=== PATIENT | female | born 1990 | race Caucasian/White ===

== ENCOUNTER 2016-10-18 12:37 | Emergency (ER) | payer OTHER ==
[2016-10-18 14:35] VITALS: BP 132/77
== END 2016-10-18 15:05 | disposition home or self-care (01) ==
LOC: ED 12:37
DX: O26.893 Other specified pregnancy related conditions, third trimester (principal); Z3A.31 31 weeks gestation of pregnancy
CPT/HCPCS: Q0092

== ENCOUNTER 2019-12-02 20:09 | Emergency (ER) | payer OTHER ==
[~2019-12-02] VITALS: Ht 167.6 cm; Wt 95.7 kg
[2019-12-02 20:10] VITALS: Ht 167.6 cm; Wt 95.7 kg
[2019-12-02 21:15] LABS: BASOPHIL % 0.6 % (0-2); PLATELET COUNT 255 x10^3mcL (130-400)
[2019-12-02 21:23] LABS: CALCIUM 8.5 mg/dL (8.5-10.1); CARBON DIOXIDE 32.4 mmol/L (21-32); CHLORIDE SERUM 105 mmol/L (98-107); CREATININE SERUM 0.8 mg/dL (0.6-1.0); GFR1 > 60 mL/min; GLUCOSE SERUM 120 mg/dL (74-106); POTASSIUM SERUM 3.7 mmol/L (3.5-5.1); SODIUM SERUM 140 mmol/L (136-145)
[2019-12-02 21:29] LABS: ALBUMIN 3.7 g/dL (3.4-5.0); ALKALINE PHOSPHATASE 90 U/L (46-116); ALT/SGPT 26 U/L (14-59); AST/SGOT 14 U/L (15-37); BILIRUBIN TOTAL 0.15 mg/dL (0.20-1.00); TOTAL PROTEIN, SERUM 7.1 g/dL (6.4-8.2)
[2019-12-02 21:46] LABS: MAGNESIUM 1.8 mg/dL (1.8-2.4); PHOSPHOROUS 3.6 mg/dL (2.5-4.9)
[2019-12-02 21:58] VITALS: BP 126/82
[2019-12-02 22:20] LABS: CHOLESTEROL/HDL RATIO 2.3
== END 2019-12-02 21:58 | disposition home or self-care (01) ==
LOC: ED 20:09
PROVIDERS: Emergency Medicine; Family Medicine
DX: R42 Dizziness and giddiness (principal); R51 Headache; R11.0 Nausea; Z88.6 Allergy status to analgesic agent
CPT/HCPCS: J8597; Q0162